=== PATIENT | female | born 1955 | race Caucasian/White ===

== ENCOUNTER 2018-04-15 01:35 | Emergency (ER) | payer OTHER ==
[~2018-04-15] VITALS: Ht 167.6 cm; Wt 90.0 kg
[2018-04-15 01:39] VITALS: BP 177/83
[2018-04-15] MEDS ORDERED: OXYcodone/APAP 5/325MG TABLET ONE (02:14)
[2018-04-15] MEDS ORDERED: OXYcodone/APAP 5/325MG TABLET PO ONE (02:30)
== END 2018-04-15 03:21 | disposition home or self-care (01) ==
LOC: ED 03:17
DX: S90.31XA Contusion of right foot, initial encounter (principal); Z88.5 Allergy status to narcotic agent; Z88.8 Allergy status to other drugs, medicaments and biological substances; W01.0XXA Fall on same level from slipping, tripping and stumbling without subsequent striking against object, initial encounter; Y93.89 Activity, other specified; Y92.098 Other place in other non-institutional residence as the place of occurrence of the external cause; Y99.8 Other external cause status
CPT/HCPCS: 29515; 99284

== ENCOUNTER → 2018-05-03 | Outpatient (CLI) | payer OTHER | END | disposition home or self-care (01) | LOC: RAD 16:14 | PROVIDERS: ATTEND Physician Assistant | DX: S92.321A Displaced fracture of second metatarsal bone, right foot, initial encounter for closed fracture (principal); S92.311A Displaced fracture of first metatarsal bone, right foot, initial encounter for closed fracture; S92.331A Displaced fracture of third metatarsal bone, right foot, initial encounter for closed fracture; S92.341A Displaced fracture of fourth metatarsal bone, right foot, initial encounter for closed fracture; X58.XXXA Exposure to other specified factors, initial encounter; Y93.89 Activity, other specified; Y92.89 Other specified places as the place of occurrence of the external cause; Y99.8 Other external cause status ==

== ENCOUNTER → 2021-01-02 | Outpatient (CLI) | payer OTHER ==
[~2021-01-02] MED LIST: ALPR0.5T7 PO; CALC500T14 PO; CHOL10003 PO; DILT300C32 PO; FERR324T5 PO; FLUO20CA19 PO; FURO40TA6 PO; GABA-827 PO; LISI1TAB39 PO; MULT-449 PO; OXYC5TAB98 PO; POTA20TA6 PO; RIBO100T3 PO; SUMA50TA3 PO
[2021-01-02 11:24] LABS: MICROSCOPIC NOT IND
[2021-01-02 11:27] LABS: BASOPHILS % (AUTO) 1 % (0-1); EOSINOPHILS % (AUTO) 2 % (1-7); LYMPHOCYTES % (AUTO) 36 % (22-44); MEAN CORPUSCULAR HEMOGLOBIN 25.6 pg (27.0-34.8); MEAN CORPUSCULAR HGB CONC 32.6 g/dL (32.4-35.8); MEAN PLATELET VOLUME 8.4 fL (7.4-10.4); MONOCYTES % (AUTO) 7 % (2-9); NEUTROPHILS % (AUTO) 54 % (42-75); PLATELET COUNT 328 x10^3/uL (130-400); RED BLOOD COUNT 4.89 x10^6/uL (3.82-5.3)
[2021-01-02 11:42] LABS: INTERNATIONAL NORMALIZED RATIO 0.99 (0.93-1.1); PROTHROMBIN TIME 10.6 Seconds (9.6-11.5)
[2021-01-02 12:16] LABS: ALANINE AMINOTRANSFERASE 20 U/L (12-78); ALBUMIN 3.9 g/dL (3.4-5.0); ANION GAP 5 mmol/L (5-15); CALCIUM 8.9 mg/dL (8.5-10.1); CHLORIDE 103 mmol/L (98-107); CREATININE 1.21 mg/dL (0.55-1.02)
[2021-01-02 12:18] LABS: ALKALINE PHOSPHATASE 178 U/L (45-117); BILIRUBIN,TOTAL 0.7 mg/dL (0.2-1.0); TOTAL PROTEIN 8.6 g/dL (6.4-8.2)
== END | disposition home or self-care (01) ==
LOC: STAR 09:50
PROVIDERS: ATTEND Neurological Surgery
DX: Z01.810 Encounter for preprocedural cardiovascular examination (principal); Z01.811 Encounter for preprocedural respiratory examination; Z01.812 Encounter for preprocedural laboratory examination; M43.16 Spondylolisthesis, lumbar region; M48.061 Spinal stenosis, lumbar region without neurogenic claudication; R79.1 Abnormal coagulation profile; R82.90 Unspecified abnormal findings in urine; R94.31 Abnormal electrocardiogram [ECG] [EKG]; I49.8 Other specified cardiac arrhythmias; M47.26 Other spondylosis with radiculopathy, lumbar region
CPT/HCPCS: 36415; 71046; 80053; 81003; 85025; 85610; 85730; 93005

== ENCOUNTER 2021-01-19 08:18 | Inpatient (IN) | payer OTHER ==
[~2021-01-19] VITALS: Ht 167.6 cm; Wt 95.5 kg
[~2021-01-19 08:18] MED LIST changes: +ALBU1.25 NEB; +METH-640 PO; +METH4TAB2 PO
[2021-01-19] MEDS ORDERED: ONDANSETRON 2MG/ML, 2ML IVPush ONE (09:30)
[2021-01-19] MEDS ORDERED: SODIUM CHLORIDE FLUSH 10ML SYR IVF ONE (09:30)
--- NOTE | 2021-01-19 09:36 | NUR ---
DR DÍAZ SPOKE WITH DR BLUE
--- NOTE | 2021-01-19 09:42 | NUR ---
PER SPOUSE, PT HAD BACK SURGERY ON Jan & . C/O BILAT LEG PAIN, LOWER RT BACK PAIN. PERCOCET 10MG AND ROBAXIN 750MG AT 0400. LAB AT [facility]
[2021-01-19] MEDS ORDERED: ONDANSETRON 2MG/ML, 2ML ONE (10:04)
[2021-01-19] MEDS ORDERED: MORPHINE SULFATE 4 MG/ML, 1ML ONE ×2 (10:05→11:00)
[2021-01-19] MEDS: MORPHINE SULFATE 4 MG/ML, 1ML IVPush PRN ×2 (10:12→11:03)
[2021-01-19 10:17] LABS: BASOPHILS % (AUTO) 1 % (0-1); EOSINOPHILS % (AUTO) 3 % (1-7); LYMPHOCYTES % (AUTO) 20 % (22-44); MEAN CORPUSCULAR HEMOGLOBIN 25.8 pg (27.0-34.8); MEAN PLATELET VOLUME 7.6 fL (7.4-10.4); MONOCYTES % (AUTO) 8 % (2-9); NEUTROPHILS % (AUTO) 68 % (42-75); PLATELET COUNT 539 x10^3/uL (130-400); RED BLOOD COUNT 4.09 x10^6/uL (3.82-5.3); RED CELL DISTRIBUTION WIDTH 20.8 % (9.6-15.2)
--- NOTE | 2021-01-19 10:23 | NUR ---
DR MONTERO AT
[2021-01-19 10:26] LABS: ALBUMIN 3.5 g/dL (3.4-5.0); ANION GAP 7 mmol/L (5-15); CHLORIDE 101 mmol/L (98-107); CREATININE 1.09 mg/dL (0.55-1.02)
[2021-01-19] MEDS ORDERED: METH4TAB6 PO (10:29)
[2021-01-19] MEDS ORDERED: OXYC1TAB18 PO (10:29)
--- NOTE | 2021-01-19 10:29 | NUR ---
TO CT PER QUINN
--- NOTE | 2021-01-19 11:06 | NUR ---
MORPHINE 4MG IV SECOND DOSE GIVEN; IV SITE PATENT.
[2021-01-19] MEDS ORDERED: SODIUM CHLORIDE FLUSH 10ML SYR IVF PRN (11:30)
[2021-01-19] MEDS ORDERED: MORPHINE SULFATE 4 MG/ML, 1ML IVPush PRN (11:30)
[2021-01-19] MEDS ORDERED: ONDANSETRON 2MG/ML, 2ML IVPush PRN ×2 (11:30→15:00)
--- NOTE | 2021-01-19 11:58 | NUR ---
PER SHARA GENAO, PT WAS DESATING SO SHE APPLIED O2 AT 2L NC. O2 SAT CURRENTLY 99%
--- NOTE | 2021-01-19 12:11 | NUR ---
CALLED RECEIVING UNIT. RN NOT CURRENTLY AVAILABLE, BUT WILL CALL BACK.
--- NOTE | 2021-01-19 12:26 | NUR ---
PT REPORT TO SHARA MCLAUGHLIN FOR ROOM [id number]
[2021-01-19 13:18] VITALS: BP 128/87
[2021-01-19 13:27] VITALS: BP 128/87
[2021-01-19] MEDS ORDERED: morphine SULFATE 10 MG/ML, 1ML IVPush ONE (14:30)
[2021-01-19] MEDS ORDERED: ONDANSETRON ODT 4 MG PO PRN (15:00)
[2021-01-19] MEDS ORDERED: ACETAMINOPHEN 325 MG TABLET PO PRN (15:00)
[2021-01-19] MEDS ORDERED: DOCUSATE 100 MG CAPSULE PO PRN (15:00)
[2021-01-19] MEDS ORDERED: SUMATRIPTAN 50 MG TABLET PO PRN (15:30)
[2021-01-19] MEDS ORDERED: ALBUTEROL SULFATE 2.5 MG/3 ML NPPB PRN (16:00)
[2021-01-19] MEDS: GABAPENTIN 400 MG CAPSULE PO SCH ×2 (16:09→21:08)
[2021-01-19] MEDS: CALCIUM CARBONATE 500 MG TABLET PO SCH ×2 (16:09→21:08)
[2021-01-19] MEDS: ENOXAPARIN 40 MG/0.4 ML SQ SCH (16:09)
[2021-01-19] MEDS: methylPREDNISolone SOD SUCC 40 MG/ML IVPush SCH ×2 (16:09→21:08)
[2021-01-19] MEDS: METHOCARBAMOL 500 MG TABLET PO PRN (18:26)
[2021-01-19] MEDS: morphine SULFATE 10 MG/ML, 1ML IVPush PRN ×2 (18:27→21:38)
[2021-01-19 20:01] VITALS: BP 162/84
[2021-01-19] MEDS: MELATONIN 5 MG TABLET PO PRN (21:38)
[2021-01-20] MEDS: morphine SULFATE 10 MG/ML, 1ML IVPush PRN ×8 (00:26→21:56)
[2021-01-20 00:33] VITALS: BP 159/77
[2021-01-20] MEDS: METHOCARBAMOL 500 MG TABLET PO PRN (02:38)
[2021-01-20] MEDS: methylPREDNISolone SOD SUCC 40 MG/ML IVPush SCH ×4 (03:34→21:54)
[2021-01-20 04:42] VITALS: BP 121/67
[2021-01-20 05:56] LABS: BASOPHILS % (AUTO) 0 % (0-1); EOSINOPHILS % (AUTO) 0 % (1-7); LYMPHOCYTES % (AUTO) 7 % (22-44); MEAN CORPUSCULAR HEMOGLOBIN 25.9 pg (27.0-34.8); MEAN PLATELET VOLUME 8.1 fL (7.4-10.4); MONOCYTES % (AUTO) 2 % (2-9); NEUTROPHILS % (AUTO) 92 % (42-75); PLATELET COUNT 462 x10^3/uL (130-400); RED BLOOD COUNT 3.83 x10^6/uL (3.82-5.3); RED CELL DISTRIBUTION WIDTH 20.8 % (9.6-15.2)
[2021-01-20 06:03] LABS: ANION GAP 4 mmol/L (5-15); CHLORIDE 102 mmol/L (98-107); CREATININE 0.99 mg/dL (0.55-1.02)
[2021-01-20] MEDS: GABAPENTIN 400 MG CAPSULE PO SCH ×4 (06:20→21:56)
[2021-01-20 08:04] VITALS: BP 138/80
[2021-01-20] MEDS: CHOLECALCIFEROL 1,000 UNIT TABLET PO SCH (09:37)
[2021-01-20] MEDS: FLUOXETINE HCL 20 MG CAPSULE PO SCH (09:37)
[2021-01-20] MEDS: POLYETHYLENE GLYCOL 17 GM PACKET PO SCH (09:37)
[2021-01-20] MEDS: DILTIAZEM 300 MG CAP.ER.24H PO SCH (09:37)
[2021-01-20] MEDS: CALCIUM CARBONATE 500 MG TABLET PO SCH ×3 (09:37→21:56)
[2021-01-20] MEDS: METHOCARBAMOL 750 MG TABLET PO PRN ×2 (10:28→18:28)
[2021-01-20] MEDS ORDERED: METHOCARBAMOL 750 MG TABLET PO PRN (15:00)
[2021-01-20 15:02] VITALS: BP_SYST 141; BP_SYST 146; BP_DIAS 66; BP_DIAS 71
[2021-01-20] MEDS: ENOXAPARIN 40 MG/0.4 ML SQ SCH (16:42)
[2021-01-20 18:44] VITALS: BP 133/71
[2021-01-20] MEDS ORDERED: AMITRIPTYLINE 10 MG TABLET PO SCH (21:00)
[2021-01-20] MEDS: MELATONIN 5 MG TABLET PO PRN (21:57)
[2021-01-21] MEDS: morphine SULFATE 10 MG/ML, 1ML IVPush PRN ×5 (00:50→22:16)
[2021-01-21 02:54] VITALS: BP 136/76
[2021-01-21] MEDS: methylPREDNISolone SOD SUCC 40 MG/ML IVPush SCH ×4 (03:38→22:16)
[2021-01-21] MEDS: METHOCARBAMOL 750 MG TABLET PO PRN ×3 (03:38→18:53)
[2021-01-21] MEDS: GABAPENTIN 400 MG CAPSULE PO SCH ×4 (06:24→22:17)
[2021-01-21 07:11] VITALS: BP 157/75
[2021-01-21] MEDS ORDERED: OXYcodone/APAP 10/325MG TABLET PO PRN (08:00)
[2021-01-21] MEDS: POLYETHYLENE GLYCOL 17 GM PACKET PO SCH (09:03)
[2021-01-21] MEDS: DILTIAZEM 300 MG CAP.ER.24H PO SCH (09:03)
[2021-01-21] MEDS: CHOLECALCIFEROL 1,000 UNIT TABLET PO SCH (09:04)
[2021-01-21] MEDS: FLUOXETINE HCL 20 MG CAPSULE PO SCH (09:04)
[2021-01-21] MEDS: CALCIUM CARBONATE 500 MG TABLET PO SCH ×3 (09:04→22:17)
[2021-01-21 14:08] VITALS: BP 153/71
[2021-01-21] MEDS: ENOXAPARIN 40 MG/0.4 ML SQ SCH (16:28)
[2021-01-21 19:50] VITALS: BP 158/74
[2021-01-21] MEDS ORDERED: AMITRIPTYLINE 10 MG TABLET PO SCH (21:00)
[2021-01-21] MEDS: MELATONIN 5 MG TABLET PO PRN (22:17)
[2021-01-22 02:58] VITALS: BP 162/78
[2021-01-22] MEDS: morphine SULFATE 10 MG/ML, 1ML IVPush PRN ×2 (03:17→06:12)
[2021-01-22] MEDS: METHOCARBAMOL 750 MG TABLET PO PRN (03:17)
[2021-01-22] MEDS: methylPREDNISolone SOD SUCC 40 MG/ML IVPush SCH ×2 (03:47→09:49)
[2021-01-22] MEDS: GABAPENTIN 400 MG CAPSULE PO SCH (06:13)
[2021-01-22 07:15] VITALS: BP 168/77
[2021-01-22] MEDS ORDERED: TRAM50TA2 PO (08:30)
[2021-01-22] MEDS ORDERED: AMIT10TA PO (08:30)
[2021-01-22] MEDS: CHOLECALCIFEROL 1,000 UNIT TABLET PO SCH (09:00)
[2021-01-22] MEDS: DILTIAZEM 300 MG CAP.ER.24H PO SCH (09:00)
[2021-01-22] MEDS: CALCIUM CARBONATE 500 MG TABLET PO SCH (09:00)
[2021-01-22] MEDS: POLYETHYLENE GLYCOL 17 GM PACKET PO SCH (09:49)
[2021-01-22] MEDS: FLUOXETINE HCL 20 MG CAPSULE PO SCH (09:49)
== END 2021-01-22 10:30 | disposition home health service (06) | DRG 948 ==
LOC: ED 09:32 → SUATTDRO 11:16 → EDIP 11:29 → 4NE 12:59
PROVIDERS: ADMIT Internal Medicine; ATTEND Family Medicine
DX: G89.18 Other acute postprocedural pain (principal); M81.0 Age-related osteoporosis without current pathological fracture; M48.061 Spinal stenosis, lumbar region without neurogenic claudication; F12.90 Cannabis use, unspecified, uncomplicated; F32.9 Major depressive disorder, single episode, unspecified; F41.9 Anxiety disorder, unspecified; I10 Essential (primary) hypertension; J44.9 Chronic obstructive pulmonary disease, unspecified; M79.18 Myalgia, other site; G43.909 Migraine, unspecified, not intractable, without status migrainosus; Z79.899 Other long term (current) drug therapy; Z98.1 Arthrodesis status; Z82.49 Family history of ischemic heart disease and other diseases of the circulatory system; Z82.5 Family history of asthma and other chronic lower respiratory diseases
CPT/HCPCS: 36415; 72131; 80048; 82040; 85025; 96374; 96375; 96376; G0378; J1650; J2405; J2270; J2920